=== PATIENT | male | born 1980 | race Caucasian/White ===

== ENCOUNTER 2020-05-09 08:59 | Emergency (ER) | payer OTHER, SELFPAY ==
[2020-05-09 09:07] VITALS: BP 153/86; PULSE 71; RESP 17; TEMP 36.9; O2SAT 96; BMI 42.0
--- NOTE | 2020-05-09 09:11 | W.ED.LOWEXIN ---
HPI - Extremity Injury (Lower) General: Chief Complaint: Extremity Injury, Lower Stated Complaint: left toe smash Time Seen by Provider: 05/09/20 09:07 Source: patient Mode of arrival: ambulatory Limitations: no limitations History of Present Illness: HPI Narrative: Patient is a 39-year-old male presents to ED today with complaints of a crush injury to his right great toe. Patient states there was a large piece of steel on a forklift when it accidentally fell landing on his toe. Tetanus is UTD. complaint: foot injury (R great toe) Onset (ago): hour(s) Injury: Right: toes (great toe) Type of Injury: other (crush injury) Place: work Severity: moderate Relieving factors: nothing Exacerbating factors: weight bearing Context: direct blow Associated symptoms: Reports no associated symptoms Other symptoms: none Review of Systems Musc: Reports: extremity pain (R great toe) Skin/Breast: Reports: other (laceration) Neuro: Denies: numbness in extremities or sensory changes Physical Exam Const: COMMON NORMALS: no acute distress, patient oriented x3, no limitations and alert Extremity: GENERAL: Yes normal exam except as noted OTHER: on pts R great toe he has an area at his nail fold that appears lacerated causing the base/root of the nail to pop out; the nail plate itself is entirely intact and still attached to the nail bed Neuro: COMMON NORMALS: patient oriented x3, moves all extremities, no focal motor deficits, no sensory deficits noted and gait normal SENSORIUM/ORIENTATION: Yes alert Skin: OTHER: see extremity assessment Course Consultations: Consultation #1: Dr. Torres-reviewed pts XRs and requested patient be sent straight to orthopedic clinic after DC and he will assess and most likely schedule surgery for tomorrow. He stated he will manage abx and pain medications for patient. Vital Signs: Vital signs: Vital Signs Temperature 97.6 F 05/09/20 10:32 Pulse Rate 61 05/09/20 10:32 Respiratory Rate 16 05/09/20 10:32 Blood Pressure 147/93 05/09/20 10:32 Pulse Oximetry 98 05/09/20 10:32 MDM - Extremity Injury (Lower) MDM Narrative: Medical decision making narrative: Patient given 1g IM Ancef here, wound irrigated and dressed, and patient was placed in surgical shoe. Registration still trying to contact main employer for information on whether this will be filed as Worker's Comp. Imaging Data^: XR R toe : Radiologist's impression: [address] [place] [address] XRay Report Signed Patient: Davie Roca Unit #: [id number] : 1980 Age/Sex: 39 / M ADM Date: 05/09/20 Loc: ER Room/Bed: Attending Dr: Ordering Provider/Ordering MD: Katherine Beach Date of Service: 05/09/20 Procedure(s): XR toe RT min 2V 88215 Accession Number(s): [id number] Report Number: [id number] WS: [id number] RIGHT first toe, 3 view. HISTORY: Trauma. 3 views are performed of the toes. Transverse fracture with mild comminution involving the distal phalanx of the first toe. Fracture is towards the distal toe and by 3 mm. There is an additional nondisplaced fracture through the middle phalanx of the second toe. XR/XR toe RT min 2V 84450 IMPRESSION: 1. Mildly comminuted minimally displaced fracture distal phalanx first toe. 2. Nondisplaced transverse fracture middle phalanx second toe. Dictated By: Shireen Laurent DO Signed By: Shireen Laurent DO Signed Date/Time: 05/09/20941 DD/ 9 Discharge Plan Discharge Patient Disposition: Home Clinical Impression: Displaced fracture of distal phalanx of right great toe Qualifiers: Encounter type: initial encounter Fracture type: open Qualified Code(s): S92.421B - Displaced fracture of distal phalanx of right great toe, initial encounter for open fracture Condition: Stable Prescriptions: No Action phentermine 37.5 mg Tablet 37.5 mg PO DAILY RF: 0 Vitamin D2 1,250 mcg (50,000 unit) Capsule 50,000 unit PO Q7D RF: 0 lisinopril-hydrochlorothiazide 10-12.5 mg Tablet 1 tab PO DAILY RF: 0 Discharge Orders: Discharge Order (Routine); Ordered 05/09/20 Ordered By: Katherine Beach Referrals: Donnie Torres DPM [Physician] - Patient Instructions: Fractures - Phalanx (Toe), Toe Fracture (ED) Activity Restrictions/Additional Instructions: As discussed [place] straight [place] [facility] [place] [facility] [place]. Torres will evaluate you and discuss surgical options. He will also prescribe patient pain and antibiotic medications for his toe injury. Discharge Date/Time: 05/09/20 10:35 Print Language: Malay Coding Level of Care Code ED Operations [place] for Chg Fwd Exam Expanded Problem Focused
--- NOTE | 2020-05-09 09:21 | XR_ITS ---
WS: [id number] RIGHT first toe, 3 view. HISTORY: Trauma. 3 views are performed of the toes. Transverse fracture with mild comminution involving the distal phalanx of the first toe. Fracture is towards the distal toe and by 3 mm. There is an additional nondisplaced fracture through th e middle phalanx of the second toe. XR/XR toe RT min 2V 25669 IMPRESSION: 1. Mildly comminuted minimally displaced fracture distal phalanx first toe. 2. Nondisplaced transverse fracture middle phalanx second toe.
[2020-05-09] MEDS: ceFAZolin 1,000 mg SDV 1000 MG IM (09:47)
[2020-05-09] MEDS: water for injection-sterile SDV 10 mL 2.5 ML IV (10:05)
[2020-05-09 10:06] VITALS: BP 151/90; PULSE 66; RESP 74; O2SAT 98
[2020-05-09 10:32] VITALS: BP 147/93; PULSE 61; RESP 16; TEMP 36.4; O2SAT 98
== END 2020-05-09 10:35 | disposition home or self-care (01) ==
PROVIDERS: Emergency Provider Physician Assistant
DX: S92.421B Displaced fracture of distal phalanx of right great toe, initial encounter for open fracture (principal); W20.8XXA Other cause of strike by thrown, projected or falling object, initial encounter
CPT/HCPCS: 12345; 73630; 73660; 96372; 99282; 99283; J0690

== ENCOUNTER 2020-05-09 14:05 | Outpatient (CLI) | payer OTHER, SELFPAY | END 2020-05-09 14:06 | disposition home or self-care (01) | LOC: SPT 14:05 | PROVIDERS: Visit Provider Podiatrist Foot & Ankle Surgery | DX: Z46.89 Encounter for fitting and adjustment of other specified devices (principal); S92.421D Displaced fracture of distal phalanx of right great toe, subsequent encounter for fracture with routine healing; X58.XXXD Exposure to other specified factors, subsequent encounter | CPT/HCPCS: 97760; L4361 ==

== ENCOUNTER → 2020-05-23 08:11 | Outpatient (BNVA) | payer OTHER, SELFPAY | PROVIDERS: Visit Provider Podiatrist Foot & Ankle Surgery | DX: S92.421B Displaced fracture of distal phalanx of right great toe, initial encounter for open fracture (principal) | CPT/HCPCS: 73630 ==

== ENCOUNTER → 2020-06-06 09:11 | Outpatient (BNVA) | payer OTHER, SELFPAY | PROVIDERS: Visit Provider Podiatrist Foot & Ankle Surgery | DX: S92.501D Displaced unspecified fracture of right lesser toe(s), subsequent encounter for fracture with routine healing (principal); S97.81XD Crushing injury of right foot, subsequent encounter; S91.211D Laceration without foreign body of right great toe with damage to nail, subsequent encounter; W19.XXXD Unspecified fall, subsequent encounter | CPT/HCPCS: 73620; 73630 ==